=== PATIENT | female | born 1960 | race Caucasian/White ===

== ENCOUNTER 2021-09-16 06:57 | Day surgery (SDC) | payer BC ==
[2021-09-16] MEDS ORDERED: fentaNYL 100 MCG/2 ML SDV ONE (07:10)
[2021-09-16] MEDS ORDERED: Propofol 200 MG/20 ML SDV ONE (07:10)
[2021-09-16] MEDS ORDERED: Midazolam 1 MG/ML 2 ML SDV ONE (07:11)
[2021-09-16] MEDS ORDERED: Sodium Chloride 0.9% 1,000 ML IV SCH (07:30)
== END 2021-09-16 09:47 | disposition home or self-care (01) ==
LOC: JP.SDS 06:57
PROVIDERS: ATTEND Surgery
DX: Z12.11 Encounter for screening for malignant neoplasm of colon (principal); K57.30 Diverticulosis of large intestine without perforation or abscess without bleeding; E66.9 Obesity, unspecified; Z86.010 Personal history of colon polyps; Z68.32 Body mass index [BMI] 32.0-32.9, adult
CPT/HCPCS: 45378; J2250; J2704; J3010; J7030